=== PATIENT | female | born 1950 | race African-American/Black ===

== ENCOUNTER 2020-08-12 00:25 | Inpatient (IN) | payer MEDICARE, OTHER ==
[~2020-08-12] VITALS: Ht 167.6 cm; Wt 73.9 kg
[2020-08-12 00:54] LABS: BASOPHILS % 2.2 % (0.0-2.0); EOSINOPHILS % 2.5 % (0.0-5.0); HEMATOCRIT. 32.1 % (36.0-48.0); HEMOGLOBIN. 10.7 g/dL (12.0-16.0); LYMPHOCYTES % 28.4 % (20.0-50.0); MEAN CORPUSCULAR HEMOGLOBIN 28.1 pg (28.0-32.0); MEAN CORPUSCULAR VOLUME 83.7 fL (81.0-99.0); MEAN PLATELET VOLUME 10.4 fl (7.4-10.4); NEUTROPHILS % 57.9 % (40.0-76.0); PLATELET 283 x1000/uL (130-400); RED BLOOD CELL COUNT 3.83 mill/uL (4.2-5.4); RED CELL DISTRIBUTION WIDTH 15.8 % (11.6-14.6)
[2020-08-12 01:01] LABS: CHLORIDE 108 mEq/L (98-107)
[2020-08-12 01:05] LABS: ETHANOL BLOOD < 10 mg/dL
[2020-08-12 01:08] LABS: LDL CHOLESTEROL 125 mg/dL (5-100)
[2020-08-12 01:17] LABS: PROTHROMBIN TIME 10.2 sec (9.6-11.0)
[2020-08-12] MEDS ORDERED: SODIUM CHLORIDE 0.9% 1,000 ML IV NR (02:30)
[2020-08-12] MEDS ORDERED: ONDANSETRON HCL 4MG/2ML INJ IV ONE (02:30)
[2020-08-12] MEDS ORDERED: ASPIRIN 325MG TABLET PO NR (02:45)
[2020-08-12 03:17] LABS: CLARITY URINE CLEAR (CLEAR); COLOR URINE YELLOW (YELLOW); KETONES URINE NEGATIVE (NEGATIVE); LEUKOCYTE ESTERASE URINE NEGATIVE (NEGATIVE); NITRITE URINE NEGATIVE (NEGATIVE); OCCULT BLOOD URINE NEGATIVE (NEGATIVE); PH URINE 5.5 (4.5-8.0); PROTEIN URINE 3+ (NEGATIVE); SPECIFIC GRAVITY URINE 1.012 (1.005-1.030); UROBILINOGEN URINE 0.2 E.U./dL (0.2-1.0)
[2020-08-12 03:28] LABS: *BARBITURATES SCREEN URINE NEGATIVE (NEGATIVE); *BENZODIAZEPINES SCREEN URINE NEGATIVE (NEGATIVE); *COCAINE SCREEN URINE NEGATIVE (NEGATIVE)
[2020-08-12 03:29] LABS: *AMPHETAMINES SCREEN URINE NEGATIVE (NEGATIVE); CANNABINOID URINE SCREEN NEGATIVE (NEGATIVE); METHADONE URINE SCREEN NEGATIVE (NEGATIVE); OPIATES URINE SCREEN NEGATIVE (NEGATIVE); PHENCYCLIDINE URINE SCREEN NEGATIVE (NEGATIVE)
[2020-08-12] MEDS ORDERED: IOHEXOL-350 100 ML BOTTLE ONE (04:27)
[2020-08-12] MEDS: MORPHINE SULFATE 2 MG/ML CPJ (NOT FOR IM USE) IV PRN ×3 (05:04→21:19)
[2020-08-12 08:30] VITALS: BP 154/78
[2020-08-12] MEDS ORDERED: DEXTROSE 50% WATER 50ML SYRINGE IV PRN (10:30)
[2020-08-12 11:08] VITALS: BP 154/78
[2020-08-12] MEDS ORDERED: ONDANSETRON HCL 4MG/2ML INJ IV PRN (11:30)
[2020-08-12 11:51] LABS: T4 FREE 1.01 ng/dL (0.76-1.46)
[2020-08-12] MEDS: BLOOD SUGAR DIAGNOSTIC STRIP TEST SCH ×3 (12:20→21:25)
[2020-08-12] MEDS: INSULIN LISPRO 100 UNITS/ML SUBCUT SCH ×3 (12:50→21:24)
[2020-08-12] MEDS ORDERED: IPRATROPIUM/ALBUTEROL 0.5-3(2.5)MG/3ML NEB HHN PRN (15:30)
[2020-08-12] MEDS ORDERED: DIPHENHYDRAMINE 50MG/ML VIAL IV PRN (15:30)
[2020-08-12] MEDS ORDERED: BISACODYL 10MG SUPP PR PRN (15:30)
[2020-08-12] MEDS: DEXT 5%/0.45% NACL 1000ML 1,000 ML IV SCH (17:22)
[2020-08-12 20:45] VITALS: BP 173/72
[2020-08-12] MEDS ORDERED: ATORVASTATIN CALCIUM 10MG TABLET PO SCH (21:00)
[2020-08-12] MEDS: ATORVASTATIN CALCIUM 40MG TABLET PO SCH (21:15)
[2020-08-12] MEDS: CLONIDINE 0.1MG TABLET PO PRN (22:11)
[2020-08-13 00:20] VITALS: BP 165/79
[2020-08-13] MEDS: DEXT 5%/0.45% NACL 1000ML 1,000 ML IV SCH ×2 (00:49→14:12)
[2020-08-13 04:00] VITALS: BP 194/84
[2020-08-13] MEDS: MORPHINE SULFATE 2 MG/ML CPJ (NOT FOR IM USE) IV PRN (04:30)
[2020-08-13] MEDS: CLONIDINE 0.1MG TABLET PO PRN ×3 (04:30→18:30)
[2020-08-13] MEDS: BLOOD SUGAR DIAGNOSTIC STRIP TEST SCH ×4 (06:24→21:36)
[2020-08-13 07:20] LABS: BASOPHILS % 0.8 % (0.0-2.0); EOSINOPHILS % 1.3 % (0.0-5.0); HEMATOCRIT. 31.2 % (36.0-48.0); LYMPHOCYTES % 22.5 % (20.0-50.0); MEAN CORPUSCULAR HEMOGLOBIN 26.7 pg (28.0-32.0); MEAN CORPUSCULAR VOLUME 83.1 fL (81.0-99.0); MEAN PLATELET VOLUME 10.7 fl (7.4-10.4); MONOCYTES % 10.3 % (2.0-8.0); NEUTROPHILS % 65.1 % (40.0-76.0); PLATELET 271 x1000/uL (130-400); RED BLOOD CELL COUNT 3.75 mill/uL (4.2-5.4); RED CELL DISTRIBUTION WIDTH 15.7 % (11.6-14.6)
[2020-08-13 07:24] LABS: CHLORIDE 107 mEq/L (98-107)
[2020-08-13 07:38] LABS: TOTAL IRON BINDING CAPACITY 226 ug/dL (250-450)
[2020-08-13 07:47] LABS: FOLIC ACID (FOLATE) SERUM 10.8 ng/mL (>5.38)
[2020-08-13] MEDS: INSULIN LISPRO 100 UNITS/ML SUBCUT SCH ×4 (08:04→21:46)
[2020-08-13] MEDS: ASPIRIN 81MG TABLET PO SCH (08:05)
[2020-08-13] MEDS ORDERED: MAGNESIUM GLUCONATE 500MG TABLET PO NR (10:30)
[2020-08-13 11:29] VITALS: BP 174/81
[2020-08-13] MEDS: CLOPIDOGREL 75MG TABLET PO SCH (14:39)
[2020-08-13 16:00] VITALS: BP 164/77
[2020-08-13] MEDS: FERROUS SULFATE 325MG TABLET PO SCH (17:23)
[2020-08-13 18:41] VITALS: BP 205/91
[2020-08-13 20:00] VITALS: BP 123/78
[2020-08-13] MEDS: ATORVASTATIN CALCIUM 40MG TABLET PO SCH ×2 (21:00→21:36)
[2020-08-13] MEDS: ASCORBIC ACID 500 MG TABLET PO SCH (21:36)
[2020-08-13] MEDS: AMLODIPINE 2.5MG TABLET PO SCH (21:37)
[2020-08-14] VITALS: BP 186/86
[2020-08-14] MEDS: DEXT 5%/0.45% NACL 1000ML 1,000 ML IV SCH ×2 (03:21→17:35)
[2020-08-14 04:01] VITALS: BP 181/88
[2020-08-14] MEDS: CLONIDINE 0.1MG TABLET PO PRN ×2 (06:30→17:34)
[2020-08-14] MEDS: BLOOD SUGAR DIAGNOSTIC STRIP TEST SCH ×4 (06:31→20:45)
[2020-08-14 07:07] LABS: BASOPHILS % 1.2 % (0.0-2.0); EOSINOPHILS % 3.6 % (0.0-5.0); HEMATOCRIT. 30.8 % (36.0-48.0); HEMOGLOBIN. 9.9 g/dL (12.0-16.0); LYMPHOCYTES % 25.7 % (20.0-50.0); MEAN CORPUSCULAR HEMOGLOBIN 26.7 pg (28.0-32.0); MEAN CORPUSCULAR VOLUME 83.1 fL (81.0-99.0); MEAN PLATELET VOLUME 10.7 fl (7.4-10.4); MONOCYTES % 11.5 % (2.0-8.0); PLATELET 272 x1000/uL (130-400); RED CELL DISTRIBUTION WIDTH 15.8 % (11.6-14.6)
[2020-08-14 08:00] VITALS: BP 164/84
[2020-08-14] MEDS: ASPIRIN 81MG TABLET PO SCH (09:03)
[2020-08-14] MEDS: CLOPIDOGREL 75MG TABLET PO SCH (09:03)
[2020-08-14] MEDS: INSULIN LISPRO 100 UNITS/ML SUBCUT SCH ×4 (09:03→21:50)
[2020-08-14] MEDS: ASCORBIC ACID 500 MG TABLET PO SCH ×2 (09:03→21:27)
[2020-08-14] MEDS: FERROUS SULFATE 325MG TABLET PO SCH ×3 (09:04→17:34)
[2020-08-14] MEDS: AMLODIPINE 2.5MG TABLET PO SCH ×2 (09:04→21:27)
[2020-08-14 12:00] VITALS: BP 173/84
[2020-08-14 16:00] VITALS: BP 201/98
[2020-08-14 20:00] VITALS: BP 175/72
[2020-08-14] MEDS: ATORVASTATIN CALCIUM 40MG TABLET PO SCH (21:27)
[2020-08-15] VITALS: BP 203/96
[2020-08-15] MEDS: CLONIDINE 0.2MG TABLET PO PRN (01:03)
[2020-08-15 04:00] VITALS: BP 169/74
[2020-08-15] MEDS: BLOOD SUGAR DIAGNOSTIC STRIP TEST SCH ×4 (06:22→20:43)
[2020-08-15] MEDS: HYDRALAZINE HCL 25MG TABLET PO SCH ×3 (06:22→21:12)
[2020-08-15 08:00] VITALS: BP 140/77
[2020-08-15] MEDS: ASPIRIN 81MG TABLET PO SCH (08:22)
[2020-08-15] MEDS: LOSARTAN POTASSIUM 100 MG TABLET PO SCH (08:22)
[2020-08-15] MEDS: AMLODIPINE 5MG TABLET PO SCH ×2 (08:22→21:11)
[2020-08-15] MEDS: INSULIN LISPRO 100 UNITS/ML SUBCUT SCH ×4 (08:22→20:44)
[2020-08-15] MEDS: ASCORBIC ACID 500 MG TABLET PO SCH ×2 (08:22→21:11)
[2020-08-15] MEDS: CLOPIDOGREL 75MG TABLET PO SCH (08:22)
[2020-08-15] MEDS: HYDROCHLOROTHIAZIDE 25MG TABLET PO SCH (08:22)
[2020-08-15] MEDS: FERROUS SULFATE 325MG TABLET PO SCH ×3 (08:22→18:01)
[2020-08-15] MEDS: INSULIN GLARGINE UD 100 UNITS/ML SYR SUBCUT SCH (09:05)
[2020-08-15 12:00] VITALS: BP 153/83
[2020-08-15 16:00] VITALS: BP 174/87
[2020-08-15 20:00] VITALS: BP 182/84
[2020-08-15] MEDS: ATORVASTATIN CALCIUM 40MG TABLET PO SCH (21:11)
[2020-08-16] VITALS: BP 185/77
[2020-08-16 04:00] VITALS: BP 179/78
[2020-08-16] MEDS: CLONIDINE 0.2MG TABLET PO PRN (04:01)
[2020-08-16] MEDS ORDERED: CLONIDINE 0.2MG TABLET PO NR (06:37)
[2020-08-16] MEDS: HYDRALAZINE HCL 25MG TABLET PO SCH ×2 (06:42→14:00)
[2020-08-16] MEDS: BLOOD SUGAR DIAGNOSTIC STRIP TEST SCH ×2 (06:42→12:20)
[2020-08-16 07:48] VITALS: BP 134/63
[2020-08-16] MEDS: FERROUS SULFATE 325MG TABLET PO SCH ×2 (07:50→12:50)
[2020-08-16] MEDS: INSULIN LISPRO 100 UNITS/ML SUBCUT SCH ×2 (07:50→12:50)
[2020-08-16] MEDS: ASPIRIN 81MG TABLET PO SCH (08:35)
[2020-08-16] MEDS: ASCORBIC ACID 500 MG TABLET PO SCH (08:39)
[2020-08-16] MEDS: HYDROCHLOROTHIAZIDE 25MG TABLET PO SCH (08:39)
[2020-08-16] MEDS: AMLODIPINE 5MG TABLET PO SCH (08:39)
[2020-08-16] MEDS: CLOPIDOGREL 75MG TABLET PO SCH (08:39)
[2020-08-16] MEDS: LOSARTAN POTASSIUM 100 MG TABLET PO SCH (08:39)
[2020-08-16] MEDS: INSULIN GLARGINE UD 100 UNITS/ML SYR SUBCUT SCH (09:52)
[2020-08-16] MEDS ORDERED: FENTANYL CITRATE/PF 50MCG/ML 2ML VIAL ONE (11:03)
[2020-08-16] MEDS ORDERED: MIDAZOLAM HCL 5 MG/5 ML VIAL ONE (11:03)
[2020-08-16 12:17] VITALS: BP 154/81
[2020-08-16 16:10] VITALS: BP 165/83
[2020-08-16 16:25] VITALS: BP 165/83
== END 2020-08-16 17:45 | disposition home or self-care (01) | DRG 65 ==
LOC: ER 00:25 → 6WST 02:57 → EDBEDREQ 03:31 → ENRESERV 07:29
PROVIDERS: ADMIT Internal Medicine; ATTEND Internal Medicine
PROC: B245ZZ4 Ultrasonography of Left Heart, Transesophageal (ICD-10-PCS; principal; 2020-08-16)
DX: I63.9 Cerebral infarction, unspecified (principal); G81.91 Hemiplegia, unspecified affecting right dominant side; N17.9 Acute kidney failure, unspecified; D50.9 Iron deficiency anemia, unspecified; E11.649 Type 2 diabetes mellitus with hypoglycemia without coma; E11.65 Type 2 diabetes mellitus with hyperglycemia; E78.00 Pure hypercholesterolemia, unspecified; E78.5 Hyperlipidemia, unspecified; J44.9 Chronic obstructive pulmonary disease, unspecified; K59.09 Other constipation; M10.9 Gout, unspecified; I10 Essential (primary) hypertension; E66.9 Obesity, unspecified; K21.9 Gastro-esophageal reflux disease without esophagitis; E11.21 Type 2 diabetes mellitus with diabetic nephropathy; K57.90 Diverticulosis of intestine, part unspecified, without perforation or abscess without bleeding; R29.810 Facial weakness; Z90.710 Acquired absence of both cervix and uterus; Z79.899 Other long term (current) drug therapy; Z68.26 Body mass index [BMI] 26.0-26.9, adult
CPT/HCPCS: 36415; 70496; 70551; 71045; 80048; 80053; 80061; 80305; 80320; 81003; 82607; 82728; 82746; 82962; 83036; 83540; 83550; 83721; 83735; 84439; 84443; 84484; 85025; 93005; 93306; 93312; 93880; 93970; 97110; 97116; 97162; 97166; 97530; 99291; J1815; J2250; J2270; J2405; J3010; Q9967; G0480

== ENCOUNTER 2025-03-02 00:37 | Emergency (ER) | payer MEDICARE, OTHER ==
[~2025-03-02] VITALS: Ht 167.6 cm; Wt 67.0 kg
[~2025-03-02 00:37] MED LIST: ALEN70TA79 PO; ALLO100T PO; CLON0.2T PO; CLOP75TA15 PO; COLC0.6C3 PO; EZET10TA81 PO; GLIM2TAB30 PO; HYDR100T11 PO; HYDR12.54 PO; INSU100I28 SQ; LOSA100T33 PO
[2025-03-02 00:43] VITALS: TEMP 37; O2SAT 98
[2025-03-02 01:08] LABS: BASOPHILS % 0.8 % (0.0-2.0); EOSINOPHILS % 1.7 % (0.0-5.0); HEMATOCRIT. 29.5 % (36.0-48.0); HEMOGLOBIN. 9.6 g/dL (12.0-16.0); LYMPHOCYTES % 24.5 % (20.0-50.0); MEAN CORPUSCULAR HGB CONC 32.4 g/dL (31.0-37.0); MEAN CORPUSCULAR VOLUME 86.4 fL (81.0-99.0); MEAN PLATELET VOLUME 10.4 fl (7.4-10.4); MONOCYTES % 11.8 % (2.0-8.0); NEUTROPHILS % 61.2 % (40.0-76.0); PLATELET 225 x1000/uL (130-400); RED BLOOD CELL COUNT 3.42 mill/uL (4.2-5.4); RED CELL DISTRIBUTION WIDTH 16.6 % (11.6-14.6); WHITE BLOOD COUNT 6.8 x1000/uL (4.5-11.0)
[2025-03-02 01:21] LABS: POTASSIUM 3.4 mEq/L (3.5-5.1)
[2025-03-02 01:22] LABS: CALCIUM 7.4 mg/dL (8.7-10.4)
[2025-03-02 01:44] LABS: CREATININE 5.2 mg/dL (0.6-1.0)
[2025-03-02 02:21] LABS: PROTHROMBIN TIME 10.8 sec (9.6-11.0)
[2025-03-02 02:42] VITALS: BP 169/73; PULSE 75; RESP 15; O2SAT 100
[2025-03-02] MEDS ORDERED: CLONIDINE 0.3MG TABLET PO ONE (03:30)
== END 2025-03-02 03:38 | disposition home or self-care (01) ==
LOC: ER 00:37
DX: K59.00 Constipation, unspecified (principal); R10.84 Generalized abdominal pain; D64.9 Anemia, unspecified; E11.22 Type 2 diabetes mellitus with diabetic chronic kidney disease; I12.0 Hypertensive chronic kidney disease with stage 5 chronic kidney disease or end stage renal disease; N18.6 End stage renal disease; Z79.02 Long term (current) use of antithrombotics/antiplatelets; Z79.4 Long term (current) use of insulin; Z79.899 Other long term (current) drug therapy; Z86.73 Personal history of transient ischemic attack (TIA), and cerebral infarction without residual deficits; Z88.0 Allergy status to penicillin; Z90.710 Acquired absence of both cervix and uterus
CPT/HCPCS: 36415; 74176; 80048; 83605; 85025; 99284